=== PATIENT | male | born 1955 | race Caucasian/White ===

== ENCOUNTER → 2016-11-07 | Outpatient (CLI) | payer BC ==
[2016-11-07 11:14] LABS: ALT 27 U/L (21-72); AST 16 U/L (17-59); Alkaline Phosphatase 53 U/L (38-126); Anion Gap 8 mmol/L; Blood Urea Nitrogen 9 mg/dL (9-20); Calcium 9.6 mg/dL (8.4-10.2); Carbon Dioxide 29 mmol/L (22-30); Chloride 104 mmol/L (98-107); Glucose 101 mg/dL (74-99); Non-African American GFR(MDRD) >60 (>60 ml/min/1.73 sqM); Potassium 4.4 mmol/L (3.5-5.1); Sodium 141 mmol/L (137-145); Total Bilirubin 0.8 mg/dL (0.2-1.3); Total Protein 7.4 g/dL (6.3-8.2)
== END | disposition home or self-care (01) ==
LOC: LABWHC1 10:09
PROVIDERS: ATTEND Internal Medicine Cardiovascular Disease
DX: I10 Essential (primary) hypertension (principal)
CPT/HCPCS: 36415; 80053; 83704

== ENCOUNTER → 2018-07-22 | Outpatient (CLI) | payer BC ==
[2018-07-25 16:58] LABS: Large VLDL Particle Number,NMR 11.5 nmol/L (<=2.7)
== END | disposition home or self-care (01) ==
LOC: LABWHC1 15:35
PROVIDERS: ATTEND Internal Medicine Cardiovascular Disease
DX: E78.2 Mixed hyperlipidemia (principal)
CPT/HCPCS: 36415; 83704

== ENCOUNTER → 2018-10-21 | Outpatient (CLI) | payer BC ==
--- NOTE | 2018-10-21 15:27 | CTL ---
EXAMINATION TYPE: CT Low Dose Lung DATE OF EXAM ORDERED: 10/21/2018 HISTORY: 63-year-old male presents with history of nicotine use. Lung cancer screening CT DLP: [address] CTDI: 2 mGy Automated exposure control for dose reduction was used. SCREENING VISIT: Baseline COMPARISON: None TECHNIQUE: Low dose computed tomography scan was performed through the chest at 1 mm thick sections a nd reconstructed images in the coronal/sagittal plane. Additional coronal MIP reconstruction performe d. CT DIAGNOSTIC QUALITY: Satisfactory FINDINGS: Heart normal size without pericardial effusion. Extensive coronary vessel calcifications are present. Ascending aorta aneurysmal at 4.5 cm. Conventional arch vessel branching anatomy. Mildly enlarged pretracheal and AP window lymph nodes measure up to 1.1 cm each. Evaluation of the lung shows biapical pleural-parenchymal scarring and mild emphysematous change. Mil d diffuse bronchial wall thickening. No suspicious pulmonary nodule or mass is seen. No consolidation or pleural effusion. Visualized upper abdomen shows moderate stool. Bones: Dextroconvex curvature centered along the upper lumbar spine. Grade 1 retrolisthesis at T11-T1 2 and T12-L1. Mild endplate spondylosis mid to lower thoracic spine. IMPRESSION: 1. Lung RADS 1 - Negative; no suspicious pulmonary nodules. 2. A couple mildly enlarged mediastinal lymph nodes measuring up to 1.1 cm may be reactive/post infla mmatory. 3. Aneurysmal ascending aorta at 4.5 cm. 4. COPD with mild emphysema and biapical pleural parenchymal scarring. CAD. RECOMMENDATION: 1. Continue annual low-dose lung cancer screening CT. 2. A 3-6 month follow-up CT of the chest can ensure stability or resolution of the mildly enlarged me diastinal lymph nodes. 3. Appropriate follow-up for the aneurysmal ascending aorta. 4. Smoking cessation. FOLLOW UP CT CHEST RECOMMENDATION: Annual follow-up for low-dose lung cancer screening CT. 3-6 month follow-up CT for mediastinal lymphadenopathy. CT LUNG RAD: Lung-Rad 1 Negative
== END | disposition home or self-care (01) ==
LOC: RADCTMAIN 12:26
PROVIDERS: ATTEND Internal Medicine Cardiovascular Disease
DX: Z12.2 Encounter for screening for malignant neoplasm of respiratory organs (principal); J43.9 Emphysema, unspecified; J94.8 Other specified pleural conditions; I25.10 Atherosclerotic heart disease of native coronary artery without angina pectoris; I71.4 Abdominal aortic aneurysm, without rupture

== ENCOUNTER 2018-11-25 10:12 | Day surgery (SDC) | payer BC ==
[2018-11-23 14:36] VITALS: BMI 20.9
[~2018-11-25 10:12] MED LIST: LACTATED RINGERS 1,000 ML IV SCH; LIDOCAINE 1% 20 ML VIAL (10MG/ML) FOR IV START INTRADERMA PRN
[2018-11-25 10:40] VITALS: TEMP 99.4
[2018-11-25] MEDS ORDERED: LIDOCAINE 1% INJ 10MG/ML (20 ML MDV) ONE (11:20)
[2018-11-25] MEDS ORDERED: PROPOFOL 10 MG/ML 20 ML VIAL IV ONE (11:20)
--- NOTE | 2018-11-25 12:23 | P.PCN ---
Date of Procedure: 11/25/18 Procedure(s) Performed: Procedure: 1. Esophagogastroduodenoscopy and biopsy. 2. Total colonoscopy. Preoperative diagnosis: Gastroesophageal reflux disease and screening for colon cancer. Postoperative diagnosis: 1. Small sliding hiatal hernia with no obvious esophagitis or complicated reflux disease. 2. Mild antral gastritis. 3. Biopsies obtained from the duodenum, antrum and esophagus. 4. Colonoscopy is within normal limits. Preparation: HalfLytely prep. Sedation: Was provided by anesthesia. Brief clinical history: The patient is a 63-year-old male who is scheduled for this evaluation because of symptomatic GERD, despite therapy, and difficulty swallowing and for colonoscopy for screening for neoplasia age being his risk factor. He has tendency to constipation but no history of bleeding or anemia. His last colonoscopy in 2011 showed less than ideal preparation. Procedure: With the patient on his left lateral decubitus position and after informed consent and adequate sedation, I passed the Olympus-GIF H190 video upper endoscope through the cricopharyngeus down the esophagus. GE junction was around 42-43 cm from the incisors and there was a small sliding hiatal hernia but no obvious esophagitis or complicated reflux disease. Specifically, there was no erosions, ulcers, Ballesteros's esophagus or strictures. The endoscope was then passed into the stomach which was insufflated with air and inspected in detail including the retroflex view in the cardia. There was some mottling and erythema in the antrum but no ulcers or erosions. Pyloric channel did not show any ulcers. Duodenal bulb, post bulbar area and descending duodenum appeared within normal limits. Because of his symptoms, I obtained biopsies from the duodenum, antrum and esophagus then the endoscope was withdrawn and I proceeded with the colonoscopy. Perianal area did not show any fissures or fistulas. There were no masses felt on digital rectal examination. The Olympus CFH 190L video colonoscope was then inserted in the rectum in the usual fashion and advanced to the cecum. The mucosa appeared healthy. No polyps or tumors were seen. No obvious diverticular disease or other pathology. I retroflexed the endoscope in the rectum before the endoscope was withdrawn. The patient tolerated the procedure well. Plan: The patient was reassured. Will await biopsy results. He will follow up with you as planned and I will be happy to see in the office of his symptoms persist. I anticipate repeating his colonoscopy in 10 years.
[2018-11-25 12:34] VITALS: BP 127/78; PULSE 78; RESP 18
== END 2018-11-25 12:48 | disposition home or self-care (01) ==
LOC: ORWHC2ENDO 10:12
DX: Z12.11 Encounter for screening for malignant neoplasm of colon (principal); K44.9 Diaphragmatic hernia without obstruction or gangrene; K29.50 Unspecified chronic gastritis without bleeding; K21.9 Gastro-esophageal reflux disease without esophagitis; K29.70 Gastritis, unspecified, without bleeding; R13.10 Dysphagia, unspecified; F17.210 Nicotine dependence, cigarettes, uncomplicated; E78.5 Hyperlipidemia, unspecified; Z79.899 Other long term (current) drug therapy
CPT/HCPCS: 88305; 43239; J2001; J2704; G0121

== ENCOUNTER → 2021-02-27 | Outpatient (CLI) | payer BC ==
[2021-02-27 13:59] LABS: Basophils # (A) 0.05 X 10*3/uL (0.00-0.10); Basophils % (A) 0.7 %; Eosinophils % (A) 4.4 %; HCT 42.1 % (39.6-50.0); Lymphocytes # (A) 1.79 X 10*3/uL (0.90-5.00); Lymphocytes % (A) 26.3 %; MCH 30.9 pg (27.0-32.0); MCHC 33.3 g/dL (32.0-37.0); MCV 92.9 fL (80.0-97.0); Mean Platelet Volume 8.8 fL (9.5-12.2); Monocytes # (A) 0.88 X 10*3/uL (0.20-1.00); Monocytes % (A) 12.9 %; Neutrophils # (A) 3.76 X 10*3/uL (1.80-7.70); Neutrophils % (A) 55.4 %; Platelet Count 291 X 10*3/uL (140-440); RBC 4.53 X 10*6/uL (4.40-5.60); RDW 12.2 % (11.5-14.5)
[2021-02-27 15:43] LABS: Erythrocyte Sedimentation Rate 7 mm/Hr (0-20)
[2021-02-27 16:15] LABS: Hemoglobin A1C 6.2 % (4.0-6.0)
[2021-02-27 21:28] LABS: Protein, Total 6.7 g/dL (6.2-8.2)
[2021-02-27 21:30] LABS: ALT 20 U/L (10-49); AST 22 U/L (14-35); African American GFR (CKD) 115.6 (60.0-200.0); Albumin/Globulin Ratio 1.62 (1.60-3.17); Alkaline Phosphatase 63 U/L (41-126); BUN/Creat Ratio 18.57 Ratio (12.00-20.00); Calcium 9.1 mg/dL (8.7-10.3); Carbon Dioxide 28.1 mmol/L (21.6-31.8); Chloride 109 mmol/L (96-109); Chol/HDL Ratio 2.91; Cholesterol 137 mg/dL (0-200); Globulin 2.6 g/dL (1.6-3.3); Glucose 103 mg/dL (70-110); Non-African American GFR(CKD) 99.7 (60.0-200.0); Sodium 142 mmol/L (135-145); Total Bilirubin 0.4 mg/dL (0.3-1.2); Total Protein 6.8 g/dL (6.2-8.2); Triglycerides <50.0 mg/dL (0.0-149.0)
== END | disposition home or self-care (01) ==
LOC: LABWHC1 08:59
PROVIDERS: ATTEND Internal Medicine Cardiovascular Disease
DX: E55.9 Vitamin D deficiency, unspecified (principal); G62.9 Polyneuropathy, unspecified
CPT/HCPCS: 36415; 80053; 80061; 82306; 82607; 83036; 84165; 84443; 85025; 85652; 86038

== ENCOUNTER → 2021-09-20 | Outpatient (CLI) | payer MEDICARE ==
--- NOTE | 2021-09-20 11:02 | CTL ---
EXAMINATION TYPE: CT Low Dose Lung DATE OF EXAM ORDERED: 09/20/2021 HISTORY: Tobacco use. Lung cancer screening CT DLP: 76.[address] CTDI: 1.9 mGy Automated exposure control for dose reduction was used. SCREENING VISIT: Follow-up COMPARISON: CT dated 10/21/2018 TECHNIQUE: Low dose computed tomography scan was performed through the chest at 1 mm thick sections a nd reconstructed images in multiple planes at 1 mm and [address] DIAGNOSTIC QUALITY: Satisfactory FINDINGS: LUNG NODULES: Newly seen irregular opacity/nodule in the middle lobe measuring up to 15 x 19 mm (image #[id number], series 12). Surrounding subsegmental atelectasis and minimal infiltration. Stable 2 mm calcified granuloma in the left upper lobe (image #[id number]). No other definite lung nodule identified. LUNGS: COPD: Severity: Moderate Fibrosis: Severity: Bilateral apical pulmonary fibrotic changes, stable. Lymph nodes: Enlarging precarinal lymph node measuring up to 16 mm compared to 11 mm previously. Stab le prominent aortopulmonary lymph nodes. No other progressive lymph nodes in the chest. Hilar lymph n odes are suboptimally assessed. Other findings: Mild diffuse bronchial wall thickening. RIGHT PLEURAL SPACE: Effusion: None Calcification: None Thickening: None Pneumothorax: None LEFT PLEURAL SPACE: Effusion: None Calcification: None Thickening: None Pneumothorax: None HEART: Heart Size: Normal Coronary Calcification: Moderate to severe Pericardial Effusion: None OTHER FINDINGS: Upper abdomen: Fecal loading of the colon. Bony thorax: Degenerative changes of the lower thoracic and upper lumbar spine with retrolisthesis of L1 over L2. Supraclavicular region: None Other: Dilated ascending aorta measuring up to 4.4 cm. IMPRESSION: Newly seen irregular opacity/nodule with surrounding pulmonary infiltration in the middle lobe as described above, likely representing an inflammatory/infectious process. Recommend short-ter m follow-up CT scan in 6-8 weeks for reassessment. Enlarging solitary precarinal lymph node which can be also reassessed on the follow-up CT scan. Alternatively, further PET scan assessment can be consi dered. Ascending thoracic aortic aneurysm. Other incidental findings as described above.
== END | disposition home or self-care (01) ==
LOC: RADCTMAIN 08:33
PROVIDERS: ATTEND Family Medicine
DX: Z12.2 Encounter for screening for malignant neoplasm of respiratory organs (principal); Z87.891 Personal history of nicotine dependence
CPT/HCPCS: 71271

== ENCOUNTER 2022-03-20 10:25 | Day surgery (SDC) | payer MEDICARE ==
[~2022-03-20 10:25] MED LIST changes: +ALBUTEROL NEB (CONC) 2.5 MG/0.5 ML INHALATION ONE; -LACTATED RINGERS 1,000 ML IV SCH; -LIDOCAINE 1% 20 ML VIAL (10MG/ML) FOR IV START INTRADERMA PRN; +LIDOCAINE 2% (PF) 20 MG/ML 5 ML VIAL INHALATION ONE; +LIDOCAINE VISCOUS 300 MG/15 ML CUP MUCOUS MEM ONE; +SODIUM CHLORIDE 0.9% 1,000 ML IV SCH
[2022-03-20] MEDS ORDERED: fentaNYL (PF) 50 MCG/ML 2 ML AMP IV PRN (10:49)
[2022-03-20] MEDS ORDERED: ONDANSETRON 4 MG/2 ML VIAL IVP PRN (10:49)
[2022-03-20] MEDS ORDERED: DEXAMETHASONE SOD PHOSPHATE 4 MG/ML 1 ML VIAL IV ONE (10:49)
[2022-03-20] MEDS ORDERED: LACTATED RINGERS 1,000 ML IV SCH (10:49)
[2022-03-20] MEDS ORDERED: LIDOCAINE 1% (10MG/ML) FOR IV START INTRADERMA PRN (10:49)
--- NOTE | 2022-03-20 11:58 | CT ---
EXAMINATION TYPE: CT Chest gisela Hunt Protocol DATE OF EXAM: 03/20/2022 COMPARISON: 11/05/2021, 09/20/2021 HISTORY: pre-op bronch CT DLP: 656 mGycm Automated exposure control for dose reduction was used. FINDINGS: There is a diffuse emphysematous changes. Prior area of consolidation the right middle lobe has resol sharon. No sizable pulmonary nodule, pleural effusion, pneumothorax or focal pneumonia. There remains a pathologic-sized pretracheal lymph node measuring short axis of 1. One centimeters. A dditional shotty adenopathy in the mediastinum noted. Lack of contrast limits assessment. There does appear to be a descending aortic aneurysm measuring approximately 4.4 cm. Coronary artery calcificati ons noted. Heart size normal. Hypertrophic and degenerative change of the spine. Atherosclerotic change of the abdominal upper abdo suellen aorta. A mild central and basilar bronchiectasis. IMPRESSION: PRE BRONCHOSCOPY PREPROCEDURAL PLANNING CT SCAN DEMONSTRATING PERSISTENT PATHOLOGIC ADENOPATHY IN THE PRETRACHEAL SPACE OF THE MEDIASTINUM.
[2022-03-20] MEDS ORDERED: SUCCINYLCHOLINE CHLORIDE 200 MG/10 ML VIAL IV ONE (12:22)
[2022-03-20] MEDS ORDERED: GLYCOPYRROLATE 0.2 MG/ML 2 ML VIAL ONE (12:22)
[2022-03-20] MEDS ORDERED: MIDAZOLAM 2 MG/2 ML VIAL ONE (12:22)
[2022-03-20] MEDS ORDERED: fentaNYL (PF) 50 MCG/ML 2 ML AMP ONE (12:22)
[2022-03-20] MEDS ORDERED: NEOSTIGMINE 1 MG/ML 10 ML VIAL ONE (12:22)
[2022-03-20] MEDS ORDERED: ROCURONIUM 10 MG/ML (5 ML VIAL) IV ONE (12:22)
[2022-03-20] MEDS ORDERED: PROPOFOL 10 MG/ML 20 ML VIAL IV ONE (12:22)
[2022-03-20] MEDS ORDERED: LIDOCAINE 2% INJ 20 MG/ML (2 ML VIAL) ONE (12:22)
--- NOTE | 2022-03-20 13:04 | P.PCN ---
Date of Procedure: 03/20/22 Preoperative Diagnosis: Mediastinal lymphadenopathy Postoperative Diagnosis: Mediastinal lymphadenopathy Procedure(s) Performed: Endobronchial ultrasound Transbronchial needle aspirate of right paratracheal lymph node, station 4R Anesthesia: ALEJANDROA Surgeon: Mackenzie Davis Tassel Making Machine Operator #1: Marcela Galeana Estimated Blood Loss (ml): 0 Pathology: other Condition: stable Disposition: same day Operative Findings: Note that this patient was supposed to have a navigation bronchoscopy, transbronchial biopsy of a right middle lobe pulmonary nodule and EBUS guided mediastinal lymph node evaluation and sampling. Nevertheless, the navigational preparatory CAT scan of the chest that was done showed that the right middle lobe nodule has completely recovered and there was no evidence of any pulmonary lesions or abnormalities. Based on that, the navigation system was not utilized and no transbronchial biopsies were done. The procedure include only EBUS evaluation of the mediastinum and mediastinal lymph node sampling. After obtaining the consent the patient was taken to the OR suite he was intubated and put on MV by anesthesia then the scope was advanced to the ET tube until the Trachea was seen and it was normal and then the ru appears normal then the scope advanced to the left main and OSBALDO LB1-LB3 were seen and no endobronchial lesions were seen then the scope advanced to the lingula and the LB4 and LB5 were seen and no endobronchial lesions were seen the scope retracted and advanced to the left lower lobes LB6 to LB12 were seen one by one and no endobronchial lesions, then the scope was retracted back to the ru and advanced to the Right main and RUL RB1 and RB2 and RB3 were seen one by one and no endobronchial lesions were seen the scope then retracted and advanced to the BI and RML RB4 and RB5 were seen and no endobronchial lesions were seen then it was retracted and advanced to the RLL RB6 to RB12 were seen one by one and no endobronchial lesions. Then EBUS was used and the lymph nodes were examined. Direct measurement of the mediastinal lymph nodes revealed a 15 x 15 mm right paratracheal lymph node. No other lymph nodes identified within the mediastinum upon direct examination. At this point, I performed a EBUS guided right paratracheal station 4R lymph node biopsy and a total of 4 passes were obtained. The tissue was collected and placed into cell blocks. No complications. No bleeding. Bronchoscope was removed. Therapeutic airway suctioning was done. Patient was extubated and chest recovery in stable condition.
[2022-03-20 13:18] VITALS: TEMP 97.7
[2022-03-20 13:46] VITALS: RESP 16
[2022-03-20 14:01] VITALS: BP 111/69; PULSE 56
== END 2022-03-20 14:15 | disposition home or self-care (01) ==
LOC: ORWHC2ENDO 10:25
PROVIDERS: ATTEND Internal Medicine Critical Care Medicine
DX: C34.91 Malignant neoplasm of unspecified part of right bronchus or lung (principal); I25.10 Atherosclerotic heart disease of native coronary artery without angina pectoris; E78.5 Hyperlipidemia, unspecified; K21.9 Gastro-esophageal reflux disease without esophagitis; K59.00 Constipation, unspecified; M54.9 Dorsalgia, unspecified; G25.81 Restless legs syndrome; G89.29 Other chronic pain; Z79.82 Long term (current) use of aspirin; Z79.899 Other long term (current) drug therapy; Z87.891 Personal history of nicotine dependence
CPT/HCPCS: 31653; 31629; 71250; J2250; J0330; J2710; J3010; J2704; J2001; 31652; 88305; 88341; 88342

== ENCOUNTER → 2022-04-11 | Outpatient (CLI) | payer MEDICARE | END | disposition home or self-care (01) | LOC: RADPETMAIN 13:38 | PROVIDERS: ATTEND Internal Medicine Critical Care Medicine | DX: C34.90 Malignant neoplasm of unspecified part of unspecified bronchus or lung (principal) | CPT/HCPCS: 78815; A9552 ==

== ENCOUNTER → 2022-07-18 | Outpatient (CLI) | payer MEDICARE ==
[2022-07-18 10:58] LABS: African American GFR (CKD) >90 (>60 ml/min/1.73 sqM); Blood Urea Nitrogen 14 mg/dL (9-20); Non-African American GFR(CKD) >90 (>60 ml/min/1.73 sqM)
--- NOTE | 2022-07-18 13:24 | CT ---
EXAMINATION: CT CHEST AND ABDOMEN WITH IV CONTRAST DATE OF EXAMINATION: . COMPARISON: PET/CT on 04/11/2022. INDICATION: Follow-up for lung cancer. PROCEDURE: Axial CT of the chest and abdomen was performed following the intravenous administration of 70 ml Isovue 300. Coronal and sagittal reformats were performed. CT dose lowering techniques were used, to include: automated exposure control, adjustment for patient size, and/or use of iterative r econstruction. FINDINGS: CHEST: Mediastinum and Shannan: The previously seen hypermetabolic lymph node in the precarinal region measures 1.2 cm in short axis diameter and previously measured approximately 1.3 cm in short axis diameter. N o additional enlarged lymph nodes are otherwise seen. Several subcentimeter lymph nodes are also seen that are unchanged. Pleural and Pericardial spaces: There are no pleural or pericardial effusions. Cardiovascular: There is mild vascular calcification throughout the thoracic aorta with mild dilation of the ascending thoracic aorta up to 4.4 cm in diameter which is unchanged. There are severe diffus e coronary artery calcifications. Pulmonary Artery: There are no central pulmonary arterial filling defects. Lung Parenchyma and Airways: There is mild paraseptal emphysematous changes at the lung apices. Lungs otherwise appear clear. ABDOMEN: Liver and Biliary system: There is a subcentimeter hypodensity within the right lobe of liver that i s too small to fully characterize. The liver otherwise appears unremarkable. This is unchanged. Adrenal glands: Normal. Kidneys and ureters: Normal. Spleen: Normal. Pancreas: Normal. Gallbladder: Normal. Lymph nodes, Peritoneum and mesentery: There is no mesenteric or retroperitoneal lymphadenopathy. Gastrointestinal tract: There are no dilated loops of bowel or free intraperitoneal air. . The appe ndix is normal. A moderate to large amount of stool within the colon. Aorta/IVC: Significant vascular calcification throughout the abdominal aorta without evidence of an eurysmal dilation or dissection. IVC normal. Abdominal wall: Normal. BONES: There are no osseous destructive lesions.. ADDITIONAL SIGNIFICANT FINDINGS: None. IMPRESSION: 1. Similar to slight decrease in size of the previously noted hypermetabolic lymph node within the ca rinal region. 2. No additional metastatic disease seen within the chest or abdomen. 3. Dilation of the ascending thoracic aorta which is unchanged. 4. Severe coronary artery calcifications.
== END | disposition home or self-care (01) ==
LOC: RADCTMAIN 09:58
PROVIDERS: ATTEND Internal Medicine
DX: C34.90 Malignant neoplasm of unspecified part of unspecified bronchus or lung (principal); I77.810 Thoracic aortic ectasia; I25.10 Atherosclerotic heart disease of native coronary artery without angina pectoris; R59.0 Localized enlarged lymph nodes
CPT/HCPCS: 82565; 84520; 71260; 74160; 36415; Q9967 ×2

== ENCOUNTER → 2022-11-13 | Outpatient (CLI) | payer MEDICARE ==
[2022-11-13 11:45] LABS: African American GFR (CKD) >90 (>60 ml/min/1.73 sqM); Blood Urea Nitrogen 15 mg/dL (9-20); Non-African American GFR(CKD) >90 (>60 ml/min/1.73 sqM)
--- NOTE | 2022-11-13 13:06 | CT ---
EXAMINATION TYPE: CT chest abdomen w con DATE OF EXAM: 11/13/2022 COMPARISON: 07/18/2022 and PET/CT 04/11/2022 HISTORY: f/u lung ca CT DLP: 438.2 mGycm CONTRAST: CT scan of the chest, abdomen is performed with Oral Contrast and with IV Contrast, patient injected with 100 mL of Isovue 300. CT Chest: LUNGS: There is a new parenchymal density right upper lobe medially seen best on image 44 sequence 3. This may reflect inflammatory/postinflammatory change however short-term follow-up is advised in 8- 2 weeks. Upper lobe parenchymal scarring remains stable. The lungs are otherwise clear. No evidence f or pleural effusion. MEDIASTINUM: Ascending thoracic aortic aneurysm measuring 4.1 cm AP dimension. The heart is not enlar ged. No evidence for mediastinal mass or adenopathy. HILAR STRUCTURES: No evidence for mass. No hilar adenopathy is appreciated. OTHER: No significant abnormality. CONTRAST CT ABDOMEN AND PELVIS FINDINGS: LIVER/GB: No calcified gallstones. No space occupying hepatic lesion. Biliary tree is of normal ca liber. PANCREAS: No inflammation. No distinct mass. SPLEEN: No splenic enlargement. No lesion seen. ADRENALS: No nodule. No thickening. KIDNEYS/BLADDER: No hydronephrosis. No nephrolithiasis. No disctinct renal mass. BOWEL: Normal appendix. Normal bowel caliber. No inflammation. LYMPH NODES: No greater than 1cm abdominal or pelvic lymph nodes are appreciated. AORTA: No significant abnormality. OSSEOUS STRUCTURES: No significant abnormality is seen. OTHER: No significant additional abnormality is seen. IMPRESSION: 1. There is a new parenchymal density right upper lobe medially seen best on image 44 sequence 3. Thi s may reflect inflammatory/postinflammatory change however short-term follow-up is advised in 8-12 we eks. 2. Ascending thoracic aortic aneurysm is stable. No evidence for metastatic disease to the chest or a bdomen at this time.
== END | disposition home or self-care (01) ==
LOC: RADCTMAIN 09:58
PROVIDERS: ATTEND Internal Medicine
DX: C34.90 Malignant neoplasm of unspecified part of unspecified bronchus or lung (principal); I71.21 Aneurysm of the ascending aorta, without rupture; J98.4 Other disorders of lung
CPT/HCPCS: 82565; 84520; 71260; 74160; 36415; Q9967

== ENCOUNTER → 2023-07-30 | Outpatient (CLI) | payer MEDICARE ==
[2023-07-30 12:31] LABS: African American GFR (CKD) >90 (>60 ml/min/1.73 sqM); Blood Urea Nitrogen 13 mg/dL (9-20); Non-African American GFR(CKD) >90 (>60 ml/min/1.73 sqM)
--- NOTE | 2023-08-05 12:34 | CT ---
EXAMINATION TYPE: CT ChestAbdPelvis wo/w con CT DLP: 1017.30 mGycm, Automated exposure control for dose reduction was used. DATE OF EXAM: 07/30/2023 2:03 PM COMPARISON: CT chest abdomen 11/13/2022 and before CLINICAL INDICATION:Male, 68 years old with history of C34.90 lung cancer; PHH, obs for mets, hx of l alex ca. TECHNIQUE: Multiple axial images of the chest, abdomen, and pelvis were obtained. Two-dimensional cor onal and sagittal reconstructions were obtained. Contrast used:100ml mL of Isovue 300 without and with IV Contrast, Oral contrast used: with Oral Contrast FINDINGS: CHEST: LUNGS/ PLEURA: No pleural effusion or pneumothorax. Mild to moderate upper lobe emphysematous changes . There was a new parenchymal density in the anterior right lung on the previous exam, which is no lo nger identified, was likely infectious/inflammatory. No new infiltrate or consolidation. No sizable n odule or mass. AIRWAY: Central airways are patent. LOWER NECK: No significant findings. MEDIASTINUM: Nonenlarged mediastinal nodes, stable. No new or enlarging nodes. HEART: Normal heart si ze. Moderate coronary artery calcification and/or stents. No appreciable pericardial effusion. VASCULATURE: Mild atherosclerotic calcifications of the aorta and branches. Ascending aorta is 4.3 c m, stable when measured in a similar fashion against the prior exam. Descending aorta is 2.7 CM. Aor ta is considered aneurysmal in its ascending segment. Pulmonary trunk measures 2.5 CM. Pulmonary misa nk is normal in size. Grossly preserved enhancement of the pulmonary arteries, in the limits of non-C TA exam. SOFT TISSUES/LYMPH NODES: Stable appearing soft tissues with little body wall fat. No evidence of axi llary adenopathy. MUSCULOSKELETAL: Mild/moderate degenerative change of the thoracic spine. No acute abnormalities. OTHER: No other significant finding. ABDOMEN PELVIS: Limited assessment as lack of intraperitoneal fat provides little intrinsic contrast for the exam. ABDOMEN LIVER: Stable without evidence of mass. GALLBLADDER AND BILE DUCTS: Unremarkable. PANCREAS: Unremarkable. SPLEEN: Unremarkable. ADRENAL GLANDS: Not well seen, no evidence of mass.. KIDNEYS AND URETERS: Kidneys enhance symmetrically. No hydronephrosis or masses visualized. PELVIS BLADDER: Unremarkable REPRODUCTIVE: Prostate is difficult to measure but could be as large as 6.4 cm transverse; correlate with PSA level. ABDOMEN & PELVIS STOMACH AND BOWEL: Contrast traverses the stomach and small bowel loops without evidence of obstructi on. Contrast is just reaching the right colon. Appendix is not clearly identified. There is a large a mount of stool seen throughout the colon which limits assessment but no acute abnormality is seen. PERITONEUM/RETROPERITONEUM: No evidence of pneumoperitoneum or free fluid. VASCULATURE: Moderate atherosclerotic calcifications are present throughout the abdominal aorta and i ts branches. Mild narrowing of the proximal celiac and bilateral renal arteries. Proximal SMA minimal ly narrowed by calcific plaque. Diffuse calcific plaque throughout the iliac arteries with multifocal areas of narrowing. There are potentially significant stenoses in the region of the distal external iliac arteries bilaterally. MUSCULOSKELETAL: Moderate degenerative changes of the visualized spine with apex right curvature in t he mid to upper lumbar region with a slight rotary component. Milder mid to lower thoracic scoliosis. No acute bony abnormalities. Mild bilateral hip arthropathy. LYMPH NODES: No evidence of lymphadenopathy. SOFT TISSUES/ABDOMINAL WALL: No acute or concerning finding. OTHER: No other significant finding. IMPRESSION: 1. Overall no evidence of recurrent or metastatic disease in the chest, abdomen, or pelvis. 2. Mild to moderate upper lobe emphysematous changes. 3. Previous parenchymal density in the anterior right lung has cleared, was likely infectious/inflam matory. 4. No new pulmonary infiltrate or consolidation. No sizable nodule or mass. 5. Stable 4.3 cm fusiform aneurysm of the ascending thoracic aorta. 6. Other stable chronic and likely incidental findings as above.
== END | disposition home or self-care (01) ==
LOC: RADCTMAIN 11:51
PROVIDERS: ATTEND Internal Medicine
DX: C34.90 Malignant neoplasm of unspecified part of unspecified bronchus or lung (principal); J98.4 Other disorders of lung; I71.21 Aneurysm of the ascending aorta, without rupture; J43.9 Emphysema, unspecified
CPT/HCPCS: 82565; 84520; 71270; 74178; 36415; Q9967

== ENCOUNTER → 2023-10-29 | Outpatient (CLI) | payer MEDICARE ==
[2023-10-29 12:01] LABS: African American GFR (CKD) >90 (>60 ml/min/1.73 sqM); Blood Urea Nitrogen 16 mg/dL (9-20); Non-African American GFR(CKD) 86 (>60 ml/min/1.73 sqM)
--- NOTE | 2023-10-30 10:07 | CT ---
EXAMINATION TYPE: CT ChestAbdPelvis w con DATE OF EXAM: 10/29/2023 INDICATION: Hx lung ca, observe for mets COMPARISON: 07/30/2023 CT DLP: 1208 mGycm CONTRAST: Performed with Oral Contrast and with IV Contrast, patient injected with 100 mL of Isovue 300. TECHNIQUE: Axial images at 5 mm thick sections. Reconstructed images in the coronal plane. Delayed images through the kidneys. FINDINGS: CT CHEST: Portion of the thyroid visualized is normal. No suspicious lung nodules or focal infiltrates are present. There is a 1.3 cm aortopulmonic window lymph node. Series 3 image 24. This appears stable. A few scat tered shoddy lymph nodes are present. The ascending aorta diameter at the level of the main pulmonary artery is 4.3 cm. The main pulmonary artery diameter at the bifurcation is 2.5 cm. Coronary artery calcifications present. CT ABDOMEN: Liver: Couple small hypodensities within the liver may be related to hepatic cysts. Spleen: Normal Pancreas: Normal Adrenal glands: The adrenal glands are normal. Gallbladder: Normal Kidneys: No masses are evident. No hydronephrosis is present. No cysts are present. Delayed images were obtained through the kidneys, which remain unremarkable. Aorta: Vascular calcification is within the aorta. Inferior vena cava: Normal. CT PELVIS: Loops of bowel within the abdomen and pelvis are normal. There are loops of bowel which are incom pletely distended or lack oral contrast limiting their evaluation. Appendix: Not identified. No dilated tubular structure or inflammatory change is evident. Urinary bladder: Normal. Genitourinary structures: Prostate is prominent. Osseous structures: No suspicious lytic or sclerotic lesions. IMPRESSION: 1. No suspicious changes to suggest recurrent or metastatic lung cancer. There is a stable appearing 1.3 cm lymph node in the aortopulmonic window.
== END | disposition home or self-care (01) ==
LOC: RADCTMAIN 11:22
PROVIDERS: ATTEND Internal Medicine
DX: C34.90 Malignant neoplasm of unspecified part of unspecified bronchus or lung (principal)
CPT/HCPCS: 82565; 84520; 71260; 74177; 36415; Q9967

== ENCOUNTER → 2024-02-04 | Outpatient (CLI) | payer MEDICARE ==
[2024-02-04 11:04] LABS: African American GFR (CKD) >90 (>60 ml/min/1.73 sqM); Blood Urea Nitrogen 13 mg/dL (9-20); Non-African American GFR(CKD) >90 (>60 ml/min/1.73 sqM)
--- NOTE | 2024-02-05 10:58 | CT ---
EXAMINATION TYPE: CT ChestAbdPelvis w con CT DLP: 1318 mGycm, Automated exposure control for dose reduction was used. DATE OF EXAM: 02/04/2024 12:25 PM COMPARISON: Multiple CT chest abdomen pelvis with most recent 10/29/2023, PET/CT 12/09/2021. CLINICAL INDICATION:Male, 68 years old with history of C34.90 LUNG CANCER; [facility], F/U on Lung Ca. Diagn osed in 2021 Technique: Multiple axial images of the chest, abdomen, and pelvis were obtained following the intrav enous administration of 100 mL Isovue-300. Oral contrast was administered. Two-dimensional coronal an d sagittal reconstructions were obtained. Findings: CHEST: LUNGS/ PLEURA: No pleural effusion, pneumothorax, or focal consolidation. Biapical pleural-parenchyma l scarring redemonstrated. No new suspicious pulmonary nodules or masses. Mild centrilobular emphysem atous changes with upper lobe predominance. AIRWAY: Patent and unremarkable.. HEART: Size within normal limits. No pericardial effusion. Moderate coronary calcification and/or saritha nts. MEDIASTINUM: Stable mildly prominent AP window lymph node measuring up to 9.9 mm short axis, no new o r enlarging adenopathy. VASCULATURE: Stable aneurysmal dilatation of the ascending thoracic aorta measuring up to 4.4 cm, pr oducing 4.3 cm. Mild atherosclerotic calcification of the aorta and its branches. Conventional three- vessel aortic arch. MUSCULOSKELETAL: No acute osseous abnormalities. No aggressive osseous lesion. Mild mid to lower thor acic scoliosis. SOFT TISSUES/LYMPH NODES: Unremarkable. LOWER NECK: No significant findings. ABDOMEN: ABDOMEN LIVER: Diffuse stable scattered subcentimeter hypodense foci which are too small to accurately charac terize but may represent cysts. GALLBLADDER AND BILE DUCTS: Unremarkable appearance of the gallbladder. Common bile duct is within no rmal limits. There is new intrahepatic biliary ductal dilatation. PANCREAS: Unremarkable. SPLEEN: Unremarkable. ADRENAL GLANDS: Unremarkable. KIDNEYS AND URETERS: No evidence of hydronephrosis or renal calculus. The enhance symmetrically. Cont rast is demonstrated within both collecting systems on the delayed phase. PELVIS BLADDER: Mildly distended. REPRODUCTIVE: Enlarged prostate measuring 6.6 cm in transverse dimension. ABDOMEN & PELVIS STOMACH AND BOWEL: Stomach and duodenum are unremarkable. No focal bowel wall thickening. Moderate co lonic stool burden. This limits evaluation. Enteric contrast reaches the transverse colon. Appendix i s not clearly identified. No evidence of bowel obstruction. PERITONEUM: No evidence of pneumoperitoneum or free fluid. VASCULATURE: Moderate atherosclerotic calcifications are present throughout the abdominal aorta and i ts branches. No abdominal aortic aneurysm. Mild narrowing of the proximal celiac and bilateral renal arteries. Proximal SMA is minimally narrowed by calcified plaque. MUSCULOSKELETAL: No acute osseous abnormalities. No aggressive osseous lesion. Moderate degenerative changes of the visualized spine with apex right curvature in the mid to upper lumbar region with slig ht rotary component. Mild bilateral hip arthropathy. LYMPH NODES: No gross evidence for lymphadenopathy. SOFT TISSUE/ABDOMINAL WALL: Unremarkable IMPRESSION: 1. No CT evidence for recurrent or metastatic lung cancer. Stable prominent AP window lymph node. No new lymphadenopathy. 2. New intrahepatic biliary ductal dilatation from prior exam. Correlation biliary labs is recommende d with consideration for MRCP. 3. Stable ascending thoracic aortic aneurysm.
== END | disposition home or self-care (01) ==
LOC: RADCTMAIN 10:07
PROVIDERS: ATTEND Internal Medicine
DX: C34.90 Malignant neoplasm of unspecified part of unspecified bronchus or lung (principal); I71.21 Aneurysm of the ascending aorta, without rupture; K83.8 Other specified diseases of biliary tract
CPT/HCPCS: 82565; 84520; 71260; 74177; 36415; Q9967

== ENCOUNTER → 2024-05-26 | Outpatient (CLI) | payer MEDICARE ==
[2024-05-26 11:08] LABS: African American GFR (CKD) >90 (>60 ml/min/1.73 sqM); Blood Urea Nitrogen 16 mg/dL (9-20); Non-African American GFR(CKD) >90 (>60 ml/min/1.73 sqM)
--- NOTE | 2024-05-26 12:40 | CT ---
CT chest and abdomen with contrast HISTORY: Lung cancer follow-up. COMPARISON: CT chest abdomen pelvis dated 02/04/2024. TECHNIQUE: Multiple axial images were obtained through the chest and abdomen following the uneventful administration of nonionic IV contrast material. FINDINGS: CT CHEST: There is no suspicious lung mass or nodule. There is no airspace consolidation or abnormal interstitial density. There are mild pleural parenchymal changes in the lung apices. There is no pleural effusion or pneumo thorax. No mediastinal, hilar or axillary adenopathy. There is 4.3 cm dilatation of ascending thoracic aorta. No focal osseous lesions are seen. CT ABDOMEN: The gallbladder is unremarkable. There is no focal mass or organomegaly involving the liver, pancreas, spleen or adrenal glands. There is no solid renal mass or hydronephrosis. The caliber of the abdominal aorta is normal and there is no retroperitoneal adenopathy. The bowel loops are normal in caliber and no dilatation or obstruction. There is a moderate amount st ool within the colon. There is no free intraperitoneal air or fluid. There is no focal osseous lesion. IMPRESSION: No evidence of recurrent or metastatic lung cancer. [facility], , 05/26/2024 12:38 PM
== END | disposition home or self-care (01) ==
LOC: RADCTMAIN 10:27
PROVIDERS: ATTEND Internal Medicine
DX: C34.90 Malignant neoplasm of unspecified part of unspecified bronchus or lung (principal)
CPT/HCPCS: 82565; 84520; 71260; 74160; 36415; Q9967

== ENCOUNTER → 2024-11-04 | Outpatient (CLI) | payer MEDICARE ==
--- NOTE | 2024-11-04 18:59 | MR ---
EXAMINATION TYPE: MR Prostate wo/w con DATE OF EXAM: 11/04/2024 7:41 AM COMPARISON: None. CLINICAL INDICATION: Male, 69 years old with history of R97.20 ELEVATED PROSTATE SPECIFIC ANTIGEN [PS A]; TECHNIQUE: Multi-planar, multi-sequence imaging of the pelvis is performed prior to and following the uncomplicated administration of bolus intravenous gadolinium. IV Contrast: mL Interpretive Criteria: PI-RADS v2.1 SERUM PSA: 10-03-24 = 9.62 - = 7.1 SURGICAL PATHOLOGY: No data available. FINDINGS: Prostatic dimensions: 6.1 x 2.2 x 3.8 cm. "Bullet" Volume:33.38 (PSA density=0.29 ng/mL/mL) CENTRAL GLAND (Central and Transition Zones/CZ+TZ): Multiple bilateral, heterogenous appearing hypertrophic stromal nodules, without suspicious lesion. M edian lobe hypertrophy with protrusion into the base of the bladder. (PI-RADS 2) PERIPHERAL ZONE (PZ): Bilateral linear, indistinct wedgelike areas of low ADC, and low T2 signal, No evidence of masslike a bnormality, or localized perfusional hypervascularity, to further suggest a focus of clinically signi ficant prostate cancer. (PI-RADS 2) SEMINAL VESICLES (SV): Symmetric and unremarkable. PERIPROSTATIC TISSUES: Unremarkable. LYMPH NODES: No enlarged pelvic lymph node. REMAINING PELVIS: Bladder wall is within normal limits given distention. No abnormal free or organized intrapelvic fluid collection. No pathologic bowel dilation or mural thickening. No hernia visualized OSSEOUS STRUCTURES: No suspicious osseous abnormality. IMPRESSION: 1. No specific features for high-risk prostate cancer. Maximum PI-RADS score: 2. 2. Mild BPH, estimated gland volume 33.38 (PSA density=0.29 ng/mL/mL) 3. No suspicious osseous lesion. No lymphadenopathy. No evidence of prostate adenocarcinoma involving the periprostatic tissues. [facility], , 11/04/2024 6:56 PM
== END | disposition home or self-care (01) ==
LOC: RADMRIMAIN 06:32
PROVIDERS: ATTEND Urology
DX: N40.0 Benign prostatic hyperplasia without lower urinary tract symptoms (principal); R97.20 Elevated prostate specific antigen [PSA]; I71.40 Abdominal aortic aneurysm, without rupture, unspecified; I10 Essential (primary) hypertension; J43.9 Emphysema, unspecified; E78.00 Pure hypercholesterolemia, unspecified
CPT/HCPCS: 72197; A9585

== ENCOUNTER → 2024-11-29 | Outpatient (CLI) | payer MEDICARE ==
[2024-11-29 14:00] LABS: African American GFR (CKD) >90 (>60 ml/min/1.73 sqM); Blood Urea Nitrogen 18 mg/dL (9-20); Non-African American GFR(CKD) >90 (>60 ml/min/1.73 sqM)
--- NOTE | 2024-11-29 15:27 | CT ---
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 CONTRAST: CT scan of the chest, abdomen and pelvis is performed without Oral Contrast and with IV Contrast, pat ient injected with 100 mL of Isovue 300. FINDINGS: CT chest: There is no suspicious lung mass or nodule. There is no abnormal airspace/consolidative density or abnormal interstitial density. There is no pleural effusion, pleural thickening or pneumothorax. The ascending thoracic aorta is dilated to 4.4 cm. There is no mediastinal, hilar or axillary adenopathy. No focal osseous lesions are seen. CT abdomen and pelvis: Gallbladder is normal without distention, pericholecystic fluid, wall thickening or gallstone. There is no biliary ductal dilatation. There is no focal mass or organomegaly involving the liver, pancreas, spleen or adrenal glands.. There is no solid renal mass or hydronephrosis. There is no retroperitoneal adenopathy or hemorrhage in the caliber of the abdominal aorta is normal. The bowel loops are normal in caliber and there is no dilatation or obstruction. No inflammatory sotomayor ges identified in the bowel wall and mesentery. There is no free intracranial air or fluid. There is no pelvic mass or adenopathy. There is no free fluid within the pelvis. There is moderate to marked prosthetic hypertrophy. No focal osseous lesions are seen. Soft tissue the abdomen and pelvis are normal. IMPRESSION: No evidence of recurrent or metastatic disease within the chest, abdomen or pelvis. No significant in terval change.. [facility], , 11/29/2024 3:24 PM
== END | disposition home or self-care (01) ==
LOC: RADCTMAIN 13:29
PROVIDERS: ATTEND Internal Medicine
DX: C34.90 Malignant neoplasm of unspecified part of unspecified bronchus or lung (principal)
CPT/HCPCS: 82565; 84520; 71260; 74177; 36415; Q9967